=== PATIENT | female | born 1960 | race Caucasian/White ===

== ENCOUNTER 2017-11-12 20:39 | Emergency (ER) | payer OTHER ==
[2017-11-12 21:02] VITALS: BP 106/63
[2017-11-12] MEDS ORDERED: IBUPROFEN 600 MG TABLET PO ONE (22:32)
[2017-11-12] MEDS ORDERED: LIDOCAINE 5% (700 MG) TRANSDERMAL ADH..PATCH TP ONE (22:32)
[2017-11-12] MEDS ORDERED: MORPHINE SULFATE IR 15 MG TABLET PO ONE (22:32)
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
== END 2017-11-12 23:48 | disposition home or self-care (01) ==
LOC: ER 20:39
DX: M62.838 Other muscle spasm (principal); M54.6 Pain in thoracic spine; M25.511 Pain in right shoulder
CPT/HCPCS: 99283

== ENCOUNTER 2018-09-23 23:50 | Emergency (ER) | payer OTHER ==
--- NOTE | 2018-09-24 00:25 | RADIOLOGY REPORT (SQ) ---
EXAM DESCRIPTION: XR SHOULDER 2 OR MORE VIEWS COMPLETED DATE/TME: 09/23/2018 00:00 CLINICAL HISTORY: 58 years, Female, Fall- L shoulder injury COMPARISON: None. NUMBER OF VIEWS: 3 TECHNIQUE: 3 view left shoulder LIMITATIONS: None. FINDINGS: Negative for fracture or dislocation. Mild degenerative changes of the AC joint. Soft tissues are unremarkable IMPRESSION: Mild degenerative change as above copyright 2010 [email or web address]- All Rights Reserved
[2018-09-24] MEDS ORDERED: ACETAMINOPHEN 325 MG TABLET PO ONE (01:15)
[2018-09-24] MEDS ORDERED: KETOROLAC TROMETHAMINE 60 MG/2 ML SDV IM ONE (01:15)
[2018-09-24] MEDS ORDERED: LIDOCAINE 5% (700 MG) TRANSDERMAL ADH..PATCH TP ONE (01:15)
[2018-09-24] MEDS ORDERED: MORPHINE SULFATE IR 15 MG TABLET PO ONE (01:15)
--- NOTE | 2018-09-24 01:21 | ER Document Report ---
ED General - General Chief Complaint: Shoulder Injury Stated Complaint: SHOULDER PAIN / FALL Time Seen by Provider: 09/24/18 00:06 Notes: Patient is a 58-year-old female without chronic medical problems who presents with left shoulder pain after a mechanical trip and fall. The patient states that she fell down a singular stair landing directly onto her left shoulder shortly prior to arrival. She states that since that time she has had a severe , throbbing, constant pain in the left shoulder worsened by any attempt at movement. She has not tried nothing for improving the pain. She has no history of similar injuries to the shoulder in the past. She denies any additional understanding of the occasions. She denies associated weakness or numbness. She has not seen her general physician regarding today's concerns. She specifically denies head or neck trauma tonight. TRAVEL OUTSIDE OF THE [place] IN LAST 30 DAYS: No - Related Data Allergies/Adverse Reactions: erythromycin base [Erythromycin Base] Allergy (Intermediate, Verified 02/19/16 09:00) Hives Past Medical History - General Information source: Patient - Social History Smoking Status: Former Smoker Chew tobacco use (# tins/day): No Frequency of alcohol use: None Drug Abuse: None Lives with: Family Family History: Reviewed & Not Pertinent, CAD Patient has suicidal ideation: No Patient has homicidal ideation: No - Past Medical History Cardiac Medical History: Denies: Hx Heart Attack, Hx Hypertension Pulmonary Medical History: Denies: Hx Asthma, Hx Bronchitis, Hx COPD, Hx Pneumonia Neurological Medical History: Denies: Hx Seizures Renal/ Medical History: Denies: Hx Peritoneal Dialysis Musculoskeletal Medical History: Reports Hx Arthritis - OSTEOARTHRITIS Psychiatric Medical History: Reports: Hx Post Traumatic Stress Disorder Past Surgical History: Reports: Hx Gynecologic Surgery - Endometrial ablation, Hx Tubal Ligation - Immunizations Hx Diphtheria, Pertussis, Tetanus Vaccination: Yes Review of Systems - Review of Systems Notes: Constitutional: Negative for fever. Eyes: Negative for visual changes. ENT: Negative for facial injury Cardiovascular: Negative for chest injury. Respiratory: Negative for shortness of breath. Gastrointestinal: Negative for abdominal injury. Genitourinary: Negative for genital injury Musculoskeletal: Positive for left shoulder injury Skin: Positive for ecchymosis to the left shoulder Neurological: Negative for head injury. Physical Exam - Vital signs Vitals: Temp Pulse Resp BP Pulse Ox 97.7 F 95 16 140/70 H 98 09/23/18 23:57 09/23/18 23:57 1218 23:57 12 23:57 09/23/18 23:57 Interpretation: Normal Notes: PHYSICAL EXAMINATION: GENERAL: Appears to be moderately uncomfortable but in no acute distress HEAD: Atraumatic, normocephalic. EYES: sclera anicteric, conjunctiva are normal. ENT: Moist mucous membranes. NECK: Normal range of motion LUNGS: Normal work of breathing HEART: 2+ radial pulses bilaterally, capillary refill less than 1 second in all digits of the bilateral hands EXTREMITIES: Range of motion testing deferred on left shoulder as patient has exquisite pain with even mild abduction or elevation of the arm. External examinations otherwise unremarkable. No pitting or edema. No cyanosis. 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 RMU motor and sensory distribution intact including against resistance on motor testing. 5 out of 5 biceps and triceps strength bilaterally. PSYCH: Normal mood, normal affect. SKIN: Warm, Dry, normal turgor, ecchymosis over the left lateral shoulder Course - Re-evaluation Re-evalutation: 09/24/18 01:17 No evidence of a septic joint, gout flare, dislocation, or fracture on exam and imaging. Appears to be most likely a acute soft tissue injury versus ligamentous injury based on a direct blunt trauma to the shoulder. Vitals wnl. At this time, I do not see an indication for labs or further imaging. At this time will discharge with return precautions and follow-up recommendations. Verbal discharge instructions given a the bedside and opportunity for questions given. Medication warnings reviewed. Patient is in agreement with this plan and has verbalized understanding of return precautions and the need for primary care follow-up in the next 24-72 hours. - Vital Signs Vital signs: Temp Pulse Resp BP Pulse Ox 97.7 F 95 16 140/70 H 98 09/23/18 23:57 09/23/18 23:57 09/23/18 23:57 09/23/18 23:57 09/23/18 23:57 - Diagnostic Test Radiology reviewed: Image reviewed, Reports reviewed Radiology results interpreted by me: 09/24/18 01:17 Left shoulder x-ray: No acute fracture or dislocation Discharge - Discharge Clinical Impression: Fall Qualifiers: Encounter type: initial encounter Qualified Code(s): W19.XXXA - Unspecified fall, initial encounter Injury of left shoulder Qualifiers: Encounter type: initial encounter Qualified Code(s): S49.92XA - Unspecified injury of left shoulder and upper arm, initial encounter Left shoulder pain Qualifiers: Chronicity: acute Qualified Code(s): M25.512 - Pain in left shoulder Condition: Good Disposition: HOME, SELF-CARE Additional Instructions: Your x-ray does not show any acute fracture today. You likely have a soft tissue injury or ligamentous strain. For your pain: Take ibuprofen 600 mg and acetaminophen 1000 mg every 6 hours together as needed for pain. Continue to apply ice to the area is much your able. Please follow-up with your primary care physician if you do not have improving your symptoms in the next 1-2 weeks. Please return immediately if you develop weakness, numbness, spreading redness from the area, or any other symptoms that are concerning to you.
[2018-09-24 02:02] VITALS: BP 138/72
== END 2018-09-24 02:03 | disposition home or self-care (01) ==
LOC: ER 23:50
DX: S49.92XA Unspecified injury of left shoulder and upper arm, initial encounter (principal); M25.512 Pain in left shoulder; W10.9XXA Fall (on) (from) unspecified stairs and steps, initial encounter; Z88.3 Allergy status to other anti-infective agents; Z98.51 Tubal ligation status
CPT/HCPCS: 99283; 96372; 73030; J1885

== ENCOUNTER 2018-09-28 03:42 | Emergency (ER) | payer OTHER ==
[2018-09-28] MEDS ORDERED: HYDROCODONE/ACETAMINOPHEN 5-325 MG (6 TAB/ER DISP) PO PRN (04:20)
[2018-09-28 04:22] VITALS: BP 132/72
--- NOTE | 2018-09-28 04:27 | RADIOLOGY REPORT (SQ) ---
CLINICAL HISTORY: rib pain COMPARISON: February 01, 2016. 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 Lungs are clear without consolidation, atelectasis, mass or edema. There is no pleural effusion. There is no pneumothorax. There are no acute osseous findings. IMPRESSION: Clear lungs.
--- NOTE | 2018-09-28 04:30 | ER Document Report ---
ED General - General Chief Complaint: Rib Pain Stated Complaint: RIB INJURY Time Seen by Provider: 09/28/18 04:12 Notes: Patient is a 58-year-old female who presents with complaint of falling and landing on bricks 5 days ago. She was initially seen and had a shoulder x-ray which was negative. She said approximately 2 days ago started having a lot of left rib pain. Says pain is worse when she coughs or takes a deep breath or twists or moves. She also notes some bruising of her left pelvic crest. She says she does not have a lot of pain in this area. She is able to bear weight without difficulty. No abdominal pain. No back pain. No neck pain. No coughing up of blood. No other complaints at this time. TRAVEL OUTSIDE OF THE [place] IN LAST 30 DAYS: No - Related Data Allergies/Adverse Reactions: erythromycin base [Erythromycin Base] Allergy (Intermediate, Verified 02/19/16 09:00) Hives Past Medical History - Social History Smoking Status: Unknown if Ever Smoked Frequency of alcohol use: None Drug Abuse: None Family History: Reviewed & Not Pertinent, CAD - Past Medical History Cardiac Medical History: Denies: Hx Heart Attack, Hx Hypertension Pulmonary Medical History: Denies: Hx Asthma, Hx Bronchitis, Hx COPD, Hx Pneumonia Neurological Medical History: Denies: Hx Seizures Renal/ Medical History: Denies: Hx Peritoneal Dialysis Musculoskeletal Medical History: Reports Hx Arthritis - OSTEOARTHRITIS Psychiatric Medical History: Reports: Hx Post Traumatic Stress Disorder Past Surgical History: Reports: Hx Gynecologic Surgery - Endometrial ablation, Hx Tubal Ligation - Immunizations Hx Diphtheria, Pertussis, Tetanus Vaccination: Yes Review of Systems - Review of Systems Notes: My Normal Review Basic REVIEW OF SYSTEMS: CONSTITUTIONAL : Denies fever, chills, or sweats. Denies recent illness. CARDIOVASCULAR: Denies chest pain. RESPIRATORY: Denies cough, cold, or chest congestion. Denies shortness of breath, difficulty breathing, or wheezing. GASTROINTESTINAL: Denies abdominal pain. Denies nausea, vomiting, or diarrhea. MUSCULOSKELETAL: left rib pain SKIN: Denies rash or skin lesions. NEUROLOGICAL: Denies altered mental status or loss of consciousness. Denies headache. Denies weakness or paralysis or loss of use of either side. Denies problems with gait or speech. Denies sensory or motor loss. ALL OTHER SYSTEMS REVIEWED AND NEGATIVE. Physical Exam - Vital signs Vitals: Temp Pulse Resp BP Pulse Ox 97.4 F 94 16 157/82 H 99 09/28/18 03:46 09/28/18 03:46 09/28/18 03:46 09/28/18 03:46 09/28/18 03:46 - Notes Notes: General Appearance: Well nourished, alert, cooperative, no acute distress, moderate obvious discomfort. Vitals: reviewed, See vital signs table. Head: no swelling or tenderness to the head Eyes: PERRL, EOMI, Conjuctiva clear Chest wall: Pain palpation over left lower ribs. Some bruising over this area. Pain to palpation of her right chest wall. Lungs: No wheezing, No rales, No rhonci, No accessory muscle use, good air exchange bilaterally. Heart: Normal rate, Regular rythm, No murmur, no rub Abdomen: Normal BS, soft, No rigidity, bruising over left iliac crest. No pain to palpation over abdomen itself. Abdomen is completely soft. No guarding, no rebound, no abdominal masses, no organomegaly Extremities: strength 5/5 in all extremities, good pulses in all extremities, bruising and pain to left shoulder, no edema. Skin: warm, dry, appropriate color, no rash Neuro: speech clear, oriented x 3, normal affect, responds appropriately to questions. Cranial is 2 through 12 are intact. Patient is standing and walking around the room without difficulty. Course - Re-evaluation Re-evalutation: 09/28/18 06:26 Patient's x-ray does not show any evidence of pneumothorax or belly displaced rib fracture. I informed the patient's this is a good chance she has a cracked rib or nondisplaced rib fracture based on her pain. I do not think she has other underlying splenic injury or abdominal injury being that she does not have pain to palpation of the abdomen itself. Pain is only over the ribs itself. She does have some pain in her shoulder but this is where she has obvious swelling and bruising. X-rich a few days ago was negative. Patient has good range of motion of that shoulder on exam. She does have some bruising over the left iliac crest however she is full weightbearing without significant pain over this area therefore I do not think an x-ray is needed. At this time for the patient states be discharged home. I will discharge home with pain medication as well as incentive spirometer. I informed her to return to ER immediately if she has any abdominal pain, any difficulty breathing, worsening rib pain is not controlled medicine, fevers, or if she feels unwell. Patient agrees with plan and will be discharged home. Dictation of this chart was performed using voice recognition software; therefore, there may be some unintended grammatical errors. - Vital Signs Vital signs: Temp Pulse Resp BP Pulse Ox 97.8 F 90 18 132/72 H 99 09/28/18 04:21 09/28/18 04:21 09/28/18 04:21 09/28/18 04:21 09/28/18 04:21 Discharge - Discharge Clinical Impression: Contusion of rib on left side Qualifiers: Encounter type: initial encounter Qualified Code(s): S20.212A - Contusion of left front wall of thorax, initial encounter Condition: Good Disposition: HOME, SELF-CARE Additional Instructions: Rib Injuries and Fractures You have been diagnosed as having either bruised or broken ribs. These two injuries are treated in the same way. It will usually take four to six weeks for these injured ribs to heal. Sometimes, rib belts or anesthetic injections of the chest wall help reduce the pain. If you are using a rib belt, you should cough or take a deep breath at least every hour or two to prevent lung complications. You should not engage in any strenuous physical activity until released by your physician. The usual rule is "if it hurts, don't do it." Rib fractures can lead to serious lung complications including lung collapse, hemorrhage, and pneumonia. You should call the physician or return at once if any of the following occur: (1) Fever or chills. (2) Persistent cough, coughing up blood, or shortness of breath. (3) Increasing pain. (4) Weakness, lightheadedness, or fainting. Please use the incentive spirometer to take a deep breath at least once every hour. Return to the ER immediately if you develop any abdominal pain. Please be aware that [place] does have Tylenol (acetaminophen) in it. Please make sure you do not take more than 4000 mg of acetaminophen a day. Do not drive or care for children after you have taken this medication they will make you sleepy and sometimes impair judgment. Prescriptions: Hydrocodone/Acetaminophen [[place] 5-325 mg Tablet] 1 tab PO Q4 PRN #12 tablet PRN Reason: For [employer] Pain Forms: Return to Work
== END 2018-09-28 05:18 | disposition home or self-care (01) ==
LOC: ER 03:42
DX: S20.212A Contusion of left front wall of thorax, initial encounter (principal); R07.81 Pleurodynia; I10 Essential (primary) hypertension; W18.09XD Striking against other object with subsequent fall, subsequent encounter
CPT/HCPCS: 71046; 99283